=== PATIENT | female | born 1960 | race Caucasian/White ===

== ENCOUNTER 2021-05-24 08:01 | Outpatient (RCR) | payer BC, OTHER, SELFPAY ==
[2021-05-24 08:02] VITALS: BMI 35.4
[2021-05-24 08:17] VITALS: BMI 35.4
== END 2021-08-13 09:23 | disposition home or self-care (01) ==
LOC: ANHDMC 08:01
PROVIDERS: Visit Provider Internal Medicine Endocrinology, Diabetes & Metabolism
DX: E11.65 Type 2 diabetes mellitus with hyperglycemia (principal); Z71.3 Dietary counseling and surveillance
CPT/HCPCS: 97802

== ENCOUNTER 2023-01-09 09:28 | Outpatient (RCR) | payer BC, OTHER, SELFPAY ==
[2023-01-09 09:32] VITALS: BMI 35.6
== END 2023-03-31 12:30 | disposition home or self-care (01) ==
LOC: ANHDMC 09:28
PROVIDERS: PCP Physician Assistant; Visit Provider Nurse Practitioner Family
DX: E11.65 Type 2 diabetes mellitus with hyperglycemia (principal); Z71.3 Dietary counseling and surveillance; Z71.89 Other specified counseling
CPT/HCPCS: 97802; G0108